=== PATIENT | male | born 1960 | race Caucasian/White ===

== ENCOUNTER 2019-02-04 15:00 | Emergency (ER) | payer BC, OTHER ==
[~2019-02-04] VITALS: Ht 180.3 cm; Wt 120.9 kg
[2019-02-04 15:22] VITALS: BP 166/72; PULSE 93; RESP 18; Ht 180.3 cm; Wt 120.9 kg
[2019-02-04] MEDS ORDERED: DIPHENHYDRAMINE 50 MG INJ IV STA (16:54)
[2019-02-04] MEDS ORDERED: METOCLOPRAMIDE 10 MG INJ IV STA (16:54)
[2019-02-04] MEDS ORDERED: SOD CHLORIDE 0.9% 1,000 ML IV STA (16:54)
[2019-02-04] MEDS ORDERED: KETOROLAC 30 MG INJ IV STA (16:54)
== END 2019-02-04 18:28 | disposition home or self-care (01) ==
LOC: E/R 15:00
DX: S09.90XA Unspecified injury of head, initial encounter (principal); G44.319 Acute post-traumatic headache, not intractable; R40.2142 Coma scale, eyes open, spontaneous, at arrival to emergency department; R40.2252 Coma scale, best verbal response, oriented, at arrival to emergency department; R40.2362 Coma scale, best motor response, obeys commands, at arrival to emergency department; X58.XXXA Exposure to other specified factors, initial encounter; Y92.9 Unspecified place or not applicable
CPT/HCPCS: 70450; 96374; 96375; 99285; J1200; J1885; J2765; J7030